=== PATIENT | female | born 1970 | race Caucasian/White ===

== ENCOUNTER 2018-06-09 20:55 | Emergency (ER) | payer OTHER ==
[~2018-06-09] VITALS: Ht 142.2 cm; Wt 90.7 kg
[2018-06-09 21:08] VITALS: BP_SYST 145
[2018-06-09] MEDS ORDERED: NACL 0.9% 1,000 ML IV ONE (21:35)
[2018-06-09] MEDS ORDERED: DEXAMETHASONE SOD PHOSPHATE 10 MG/ML VIAL IVP ONE (21:45)
[2018-06-09] MEDS ORDERED: KETOROLAC TROMETHAMINE 30 MG VIAL IVP ONE (21:45)
[2018-06-09 21:48] LABS: BILIRUBIN,URINE NEGATIVE (NEGATIVE); BLOOD, URINE NEGATIVE (NEGATIVE); CLARITY/URINE SL HAZY (CLEAR); COLOR,URINE YELLOW (YELLOW); GLUCOSE,URINE NEGATIVE (NEGATIVE); KETONES,URINE NEGATIVE (NEGATIVE); LEUKOCYTE ESTERASE ,URINE NEGATIVE (NEGATIVE); NITRITE, URINE NEGATIVE (NEGATIVE); PROTEIN URINE NEGATIVE (NEGATIVE)
[2018-06-09 21:54] LABS: EOSINOPHILS # (AUTO) 0.1 K/uL (0.0-0.4); MEAN CORPUSCULAR VOLUME 93 fL (79.0-98.0)
[2018-06-09 21:58] LABS: BASOPHILS % (AUTO) 0.5 % (0.0-2.0); EOSINOPHILS % (AUTO) 1.3 % (0.0-4.0); HEMATOCRIT 37.2 % (36-48); HEMOGLOBIN 12.4 g/dL (12.0-16.0); LYMPHOCYTES # (AUTO) 2.1 K/uL (1.0-5.5); LYMPHOCYTES % (AUTO) 27.2 % (20.5-51.5); MEAN CORPUSCULAR HEMOGLOBIN 31 pg (27-31); MEAN CORPUSCULAR HGB CONC 33 % (32-36); MONOCYTES # (AUTO) 0.9 K/uL (0.0-1.0); MONOCYTES % (AUTO) 11.7 % (1.7-9.3); NEUTROPHILS # (AUTO) 4.5 K/uL (1.8-7.7); NEUTROPHILS % (AUTO) 59.3 % (40.0-70.0); PLATELET COUNT (AUTO) 431 K/uL (130-430); RED BLOOD CELL COUNT(AUTO) 4.01 MIL/uL (4.2-6.2); RED CELL DISTRIBUTION WIDTH 14.3 % (9.0-15.0); WHITE BLOOD COUNT (AUTO) 7.6 K/uL (4.8-10.8)
[2018-06-09 22:14] LABS: CALCIUM 8.8 mg/dL (8.4-11.0); CREATININE 0.83 mg/dL (0.55-1.30)
[2018-06-09 22:21] LABS: ALBUMIN 3.9 g/dL (3.4-4.8); INR 0.9 (0.8-1.2); PROTHROMBIN TIME 9.3 SECS (9.5-12.5); TOTAL BILIRUBIN 0.3 mg/dL (0.0-1.0)
[2018-06-09] MEDS ORDERED: FOLI-43 PO (23:02)
[2018-06-09] MEDS ORDERED: RANI-281 PO (23:02)
[2018-06-09] MEDS ORDERED: AMLO2.5T2 PO (23:02)
[2018-06-09] MEDS ORDERED: NEU300 PO (23:02)
[2018-06-09] MEDS ORDERED: FLUT1DIS5 INH (23:02)
[2018-06-09] MEDS ORDERED: METH2.5T PO (23:02)
[2018-06-09] MEDS ORDERED: IBUP-1971 PO (23:02)
[2018-06-09] MEDS ORDERED: HYDR-4100 PO (23:02)
[2018-06-09] MEDS ORDERED: ADAL10SY SQ (23:02)
[2018-06-09 23:05] VITALS: BP_SYST 135
[2018-06-09 23:09] LABS: CKMB RELATIVE INDEX 0.2 (0.0-2.9); CREATINE KINASE MB 0.4 ng/mL (0-3.6)
== END 2018-06-09 23:05 | disposition home or self-care (01) ==
LOC: SED 20:55
DX: M06.221 Rheumatoid bursitis, right elbow (principal); L40.50 Arthropathic psoriasis, unspecified; J45.909 Unspecified asthma, uncomplicated; I10 Essential (primary) hypertension; Z90.49 Acquired absence of other specified parts of digestive tract
CPT/HCPCS: 36415; 71045; 73030; 80053; 81003; 82550; 82553; 83690; 85025; 85610; 85730; 96374; 96375; 99285; J1100; J1885; J7030